=== PATIENT | female | born 1955 | race Caucasian/White ===

== ENCOUNTER 2016-12-12 09:22 | Outpatient (CLI) | payer OTHER | END 2016-12-12 09:23 | disposition home or self-care (01) | DX: Z00.00 Encounter for general adult medical examination without abnormal findings (principal); Z13.220 Encounter for screening for lipoid disorders ==

== ENCOUNTER 2016-12-12 10:12 | Outpatient (CLI) | payer OTHER | END 2016-12-12 10:13 | disposition home or self-care (01) | DX: Z12.31 Encounter for screening mammogram for malignant neoplasm of breast (principal) ==

== ENCOUNTER 2018-04-06 11:23 | Outpatient (CLI) | payer OTHER ==
--- NOTE | 2018-04-07 11:39 | Mammography Report ---
Procedure Date: 04/06/2018 Accession Number: [id number] / [id number] Procedure: MGN - Screening Mammo Dig Bilat CPT Code: FULL RESULT: EXAM: Screening Mammo Dig Bilat DATE: 04/06/2018 11:43 AM CLINICAL HISTORY: 62-year-old for screening TECHNIQUE: Bilateral CC and MLO views were obtained. COMPARISON: 12/12/2016, 10/22/2015, 09/07/2014, 06/09/2013, 12/17/2011, 09/23/2010 FINDINGS: The breasts demonstrate diffuse fatty replacement bilaterally. No suspicious masses, clustered microcalcifications, or regions of architectural distortion are identified. IMPRESSION: Negative examination RECOMMENDATION: Routine annual screening unless otherwise clinically indicated. BIRADS CATEGORY 1: Negative STANDARD QUALIFYING STATEMENTS: 1. This examination was reviewed with the aid of Computer-Aided Detection (CAD). 2. A negative or benign imaging report should not delay biopsy if clinically suspicious findings are present. Consider surgical consultation if warrented. More than 5% of cancers are not identified by imaging. 3. Dense breasts may obscure an underlying neoplasm.
== END 2018-04-06 11:24 | disposition home or self-care (01) ==
LOC: DI.N 11:23
PROVIDERS: ATTEND Family Medicine
DX: Z12.31 Encounter for screening mammogram for malignant neoplasm of breast (principal)
CPT/HCPCS: 77067

== ENCOUNTER 2018-12-08 08:00 | Outpatient (CLI) | payer OTHER ==
[2018-12-08 12:30] LABS: BASOPHILS % (AUTO) 0.7 %; EOSINOPHILS # (AUTO) 0.1 10^3/uL (0.0-0.7); EOSINOPHILS % (AUTO) 2.5 %; LYMPHOCYTES % (AUTO) 37.6 %; MEAN CORPUSCULAR HEMOGLOBIN 31.7 pg (27.0-31.0); MEAN CORPUSCULAR HGB CONC 33.9 g/dL (32.0-36.0); MEAN CORPUSCULAR VOLUME 93.3 fL (81.0-99.0); MEAN PLATELET VOLUME 9.3 fL (7.9-10.8); MONOCYTES # (AUTO) 0.5 10^3/uL (0.0-1.0); NEUTROPHILS # (AUTO) 2.7 10^3/uL (1.5-6.6); NEUTROPHILS % (AUTO) 50.2 %; PLT - PLATELET COUNT 239 10^3/uL (130-450); RED BLOOD COUNT 4.43 10^6/uL (4.20-5.40); RED CELL DISTRIBUTION WIDTH 13.7 % (12.0-15.0); WHITE BLOOD COUNT 5.3 x10^3/uL (4.8-10.8)
[2018-12-08 13:08] LABS: ALBUMIN 3.9 g/dL (3.2-5.5); ALBUMIN/GLOBULIN RATIO 1.2 (1.0-2.2); ALKALINE PHOSPHATASE 51 IU/L (42-121); ALT ALANINE AMINOTRANSFERASE 17 IU/L (10-60); AST ASPARTATE AMINOTRANSFERASE 19 IU/L (10-42); BILIRUBIN,TOTAL 0.8 mg/dL (0.2-1.0); BUN - BLOOD UREA NITROGEN 20 mg/dL (6-20); CALCIUM 8.9 mg/dL (8.5-10.3); CARBON DIOXIDE - CO2 24 mmol/L (21-32); CHLORIDE 105 mmol/L (101-111); CHOL/HDL RATIO 2.5 (<4.4); CHOLESTEROL 201 mg/dL; CREATININE 0.5 mg/dL (0.4-1.0); GFR - MDRD 124 (>89); GLUCOSE 93 mg/dL (70-100); HDL CHOLESTEROL 79 mg/dL; LDL CHOLESTEROL,CALCULATED 107 mg/dL; LDL/HDL RATIO 1.4 (<4.4); SODIUM 138 mmol/L (135-145); TOTAL PROTEIN 7.2 g/dL (6.7-8.2); VLDL CHOLESTEROL 15 mg/dL
== END 2018-12-08 23:59 | disposition home or self-care (01) ==
LOC: LAB.WCP 08:00
PROVIDERS: ATTEND Physician Assistant Medical
DX: Z00.00 Encounter for general adult medical examination without abnormal findings (principal); R13.10 Dysphagia, unspecified
CPT/HCPCS: 36415; 80053; 80061; 83721; 84443; 85025

== ENCOUNTER 2019-09-07 07:00 | Day surgery (SDC) | payer MEDICARE, OTHER ==
[2019-09-07] MEDS ORDERED: ONDANSETRON 4 MG/2 ML VIAL IVP ONE (07:01)
[2019-09-07] MEDS ORDERED: LACTATED RINGERS 1,000 ML IV ONE (07:07)
[2019-09-07] MEDS ORDERED: fentaNYL 250 MCG/5 ML VIAL IVP ONE (08:11)
[2019-09-07] MEDS ORDERED: MIDAZOLAM 2 MG/2 ML VIAL IVP ONE (08:11)
[2019-09-07 09:03] VITALS: BP 95/65
== END 2019-09-07 07:01 | disposition home or self-care (01) ==
LOC: SDS 07:00
PROVIDERS: ATTEND Surgery
PROC: 0DJD8ZZ Inspection of Lower Intestinal Tract, Via Natural or Artificial Opening Endoscopic (ICD-10-PCS; principal; 2019-09-07 08:30)
DX: Z12.11 Encounter for screening for malignant neoplasm of colon (principal); K64.8 Other hemorrhoids; K57.30 Diverticulosis of large intestine without perforation or abscess without bleeding; Z80.7 Family history of other malignant neoplasms of lymphoid, hematopoietic and related tissues; Z87.891 Personal history of nicotine dependence
CPT/HCPCS: G0121; J7120

== ENCOUNTER 2020-02-13 08:00 | Outpatient (CLI) | payer MEDICARE, OTHER ==
[2020-02-13 14:16] LABS: BASOPHILS % (AUTO) 0.5 %; EOSINOPHILS # (AUTO) 0.1 10^3/uL (0.0-0.7); EOSINOPHILS % (AUTO) 1.7 %; HGB - HEMOGLOBIN 13.7 g/dL (12.0-16.0); LYMPHOCYTES # (AUTO) 1.5 10^3/uL (1.5-3.5); LYMPHOCYTES % (AUTO) 36.8 %; MEAN CORPUSCULAR HEMOGLOBIN 29.9 pg (27.0-31.0); MEAN CORPUSCULAR HGB CONC 31.6 g/dL (32.0-36.0); MEAN CORPUSCULAR VOLUME 94.5 fL (81.0-99.0); MEAN PLATELET VOLUME 10.9 fL (7.9-10.8); MONOCYTES # (AUTO) 0.3 10^3/uL (0.0-1.0); NEUTROPHILS # (AUTO) 2.2 10^3/uL (1.5-6.6); PLT - PLATELET COUNT 269 10^3/uL (130-450); RED BLOOD COUNT 4.58 10^6/uL (4.20-5.40); WHITE BLOOD COUNT 4.1 x10^3/uL (4.8-10.8)
[2020-02-13 15:01] LABS: ALBUMIN/GLOBULIN RATIO 1.4 (1.0-2.2); ALKALINE PHOSPHATASE 49 IU/L (42-121); ALT ALANINE AMINOTRANSFERASE 17 IU/L (10-60); AST ASPARTATE AMINOTRANSFERASE 19 IU/L (10-42); BUN - BLOOD UREA NITROGEN 19 mg/dL (6-20); CALCIUM 9.1 mg/dL (8.5-10.3); CARBON DIOXIDE - CO2 24 mmol/L (21-32); CHLORIDE 107 mmol/L (101-111); CHOL/HDL RATIO 2.5 (<4.4); CHOLESTEROL 203 mg/dL; CREATININE 0.7 mg/dL (0.4-1.0); GLUCOSE 93 mg/dL (70-100); HDL CHOLESTEROL 80 mg/dL; LDL CHOLESTEROL,CALCULATED 111 mg/dL; LDL/HDL RATIO 1.4 (<4.4); SODIUM 139 mmol/L (135-145); TOTAL PROTEIN 6.9 g/dL (6.7-8.2); VLDL CHOLESTEROL 12 mg/dL
== END 2020-02-13 23:59 | disposition home or self-care (01) ==
LOC: LAB.WCP 08:00
PROVIDERS: ATTEND Physician Assistant Medical
DX: Z00.00 Encounter for general adult medical examination without abnormal findings (principal); J30.9 Allergic rhinitis, unspecified
CPT/HCPCS: 36415; 80053; 80061; 83721; 85025

== ENCOUNTER 2021-09-04 13:15 | Outpatient (CLI) | payer MEDICARE, OTHER ==
--- NOTE | 2021-09-04 18:56 | XRAY Report ---
PROCEDURE: Lumbar Spine 2 View INDICATIONS: SCIATICA, L TECHNIQUE: 3 views of the lumbar spine were acquired. COMPARISON: None. FINDINGS: Bones: 5 [id number] vertebrae are present. There is a mild dextroscoliosis of the lumbar spine centered at L3-L4. There is mild retrolisthesis at L1-L2 and L2-L3. Mild anterolisthesis is demonstr ated at L4-L5. There is multilevel moderate degenerative disc disease within the mid and lower lumbar spine. There is moderate left predominant facet arthropathy in the lower lumbar spine. No vertebral body compression fractures. No suspicious bony lesions. Soft tissues: Overlying bowel gas pattern is normal. No suspicious soft tissue calcifications. IMPRESSION: 1. Dextroscoliosis of the lumbar spine centered at L3-L4. 2. Mild multilevel spondylolisthesis. 3. Multilevel moderate left predominant degenerative disc disease and left predominant moderate facet arthropathy within the mid and lower lumbar spine. Reviewed by: Narciso Voss MD on 09/04/2021 5:54 PM [place] Approved by: Narciso Voss MD on 09/04/2021 5:54 PM [place] Station ID: [id number]
== END 2021-09-04 13:16 | disposition home or self-care (01) ==
LOC: DI.N 13:15
PROVIDERS: ATTEND Physician Assistant Medical
DX: M51.16 Intervertebral disc disorders with radiculopathy, lumbar region (principal); M43.16 Spondylolisthesis, lumbar region; M41.86 Other forms of scoliosis, lumbar region

== ENCOUNTER 2022-12-03 08:02 | Outpatient (CLI) | payer MEDICARE, OTHER ==
[2022-12-03 12:38] LABS: ALBUMIN 3.9 g/dL (3.2-5.5); ALBUMIN/GLOBULIN RATIO 1.3 (1.0-2.2); ALKALINE PHOSPHATASE 43 IU/L (42-121); ALT ALANINE AMINOTRANSFERASE 20 IU/L (10-60); AST ASPARTATE AMINOTRANSFERASE 19 IU/L (10-42); BILIRUBIN,TOTAL 0.6 mg/dL (0.2-1.0); BUN - BLOOD UREA NITROGEN 21 mg/dL (6-20); CALCIUM 9.4 mg/dL (8.5-10.3); CARBON DIOXIDE - CO2 26 mmol/L (21-32); CHLORIDE 111 mmol/L (101-111); CHOL/HDL RATIO 3.1 (<4.4); CHOLESTEROL 195 mg/dL; CREATININE 0.7 mg/dL (0.4-1.0); GFR - MDRD 83 (>89); GLUCOSE 96 mg/dL (70-100); HDL CHOLESTEROL 62 mg/dL; LDL CHOLESTEROL,CALCULATED 118 mg/dL; LDL/HDL RATIO 1.9 (<4.4); POTASSIUM 4.5 mmol/L (3.5-5.0); SODIUM 142 mmol/L (135-145); TOTAL PROTEIN 6.9 g/dL (6.7-8.2); TRIGLYCERIDES 73 mg/dL; VLDL CHOLESTEROL 15 mg/dL
== END 2022-12-03 08:03 | disposition home or self-care (01) ==
LOC: LAB.N 08:02
PROVIDERS: ATTEND Physician Assistant Medical
DX: E78.5 Hyperlipidemia, unspecified (principal)
CPT/HCPCS: 36415; 80053; 80061; 83721

== ENCOUNTER 2023-01-27 13:49 | Outpatient (CLI) | payer MEDICARE, OTHER ==
--- NOTE | 2023-01-27 14:46 | DEXA Report ---
PROCEDURE: Dexa Spine and/or Hip INDICATIONS: POST MENOPAUSAL TECHNIQUE: Dual energy x-ray absorptiometry (DXA) was performed on a 800APP System. Regions measur ed are the AP Spine, femoral neck, and if needed forearm. COMPARISON: DEXA, 09/07/2014. FINDINGS: Lumbar Spine: Bone Mineral Density 1.394 g/cm/cm,T score 2.6, normal Left Femoral Neck: Bone Mineral Density 0.846 g/cm/cm, T score -1.4, osteopenia. Left Hip: Bone Mineral Density 0.936 g/cm/cm,T score -0 point, normal (T score greater or equal to -1.0: NORMAL) (T score from -1.1 to -2.4: OSTEOPENIA) (T score less than or equal to -2.5 to: OSTEOPOROSIS) Impression: Based on WHO criteria, the patient has osteopenia. Because of difference in equipment and technique, cannot make statistical analysis. Patients with diagnosis of osteoporosis or osteopenia should have regular bone mineral density assess ment. For those eligible for Medicare, routine testing is allowed once every 2 years. Testing frequ ency can be increased for patients who have rapidly progressing disease or for those who are receivin g medical therapy to restore bone mass. Reviewed by: James Hilton MD on 01/27/2023 2:44 PM PDT Approved by: James Hilton MD on 01/27/2023 2:44 PM PDT Station ID: [id number]
== END 2023-01-27 13:50 | disposition home or self-care (01) ==
LOC: DI 13:49
PROVIDERS: ATTEND Physician Assistant Medical
DX: Z78.0 Asymptomatic menopausal state (principal); M85.88 Other specified disorders of bone density and structure, other site

== ENCOUNTER 2023-03-05 16:11 | Outpatient (CLI) | payer MEDICARE, OTHER ==
--- NOTE | 2023-03-05 17:26 | XRAY Report ---
PROCEDURE: Cervical Spine 2 View INDICATIONS: NECK Pain, chronic TECHNIQUE: 3 view(s) of the cervical spine were acquired. COMPARISON: None. FINDINGS: Bones: No fractures or dislocations to the C7 level. Moderate degenerative change in the lower cerv ical spine. The lateral masses of C1 appear intact on the odontoid view. No suspicious bony lesions. Soft tissues: No prevertebral soft tissue swelling. IMPRESSION: Moderate degenerative change in the lower cervical spine. Reviewed by: Mateo Frazier MD on 03/05/2023 5:25 PM PDT Approved by: Mateo Frazier MD on 03/05/2023 5:25 PM PDT Station ID: [id number]
--- NOTE | 2023-03-05 17:32 | XRAY Report ---
PROCEDURE: Shoulder 3 View RT INDICATIONS: NECK PAIN,CHRONIC/SHOULDER JOINT PAIN TECHNIQUE: 3 views of the shoulder were acquired. COMPARISON: None. FINDINGS: Bones: No fractures or dislocations. Mild degenerative changes at the AC joint. No suspicious bony l esions. Visualized ribs appear intact. Soft tissues: No suspicious soft tissue calcifications. IMPRESSION: Mild degenerative changes at the AC joint. If symptoms persist consider MRI for further evaluation. Reviewed by: Mateo Frazier MD on 03/05/2023 5:30 PM PDT Approved by: Mateo Frazier MD on 03/05/2023 5:30 PM PDT Station ID: [id number]
== END 2023-03-05 16:12 | disposition home or self-care (01) ==
LOC: DI 16:11
PROVIDERS: ATTEND Physician Assistant Medical
DX: M47.812 Spondylosis without myelopathy or radiculopathy, cervical region (principal); M19.011 Primary osteoarthritis, right shoulder

== ENCOUNTER 2023-07-09 14:31 | Outpatient (CLI) | payer MEDICARE, OTHER ==
--- NOTE | 2023-07-10 14:30 | Mammography Report ---
BILATERAL DIGITAL SCREENING MAMMOGRAM 3D/2D: 07/09/2023 CLINICAL: Routine screening. Comparison is made to exams dated: 04/06/2018 mammogram, 12/12/2016 mammogram, 10/22/2015 mammogram, mammogram, and 12/07/2012 mammogram - Merged with [facility]. There are scattered areas of fibroglandular density in both breasts (category b / 25%-50% glandular t issue). No significant masses, calcifications, or other findings are seen in either breast. There has been no significant interval change. IMPRESSION: NEGATIVE There is no mammographic evidence of malignancy. A 1 year screening mammogram is recommended. Based on the Tyrer Cuzick model (a risk assessment model) the patients lifetime risk is 7.4% and her 10 year risk is 4.7%. According to the ACR, ACS, and NCCN guidelines, an annual breast MRI exam jose g with mammogram is recommended if the patients lifetime risk is 20% or greater. This exam was interpreted at Station ID: [id number]. NOTE: For mammograms, a report in lay terms will be sent to the patient. Approximately 15% of breast malignancies will not be visualized mammographically. In the management of a palpable breast mass, a negative mammogram must not discourage biopsy of a clinically suspicious lesion. Electronically Signed By: Anaid mcmanus/stacey:07/09/2023 18:36:31 letter sent: No_Letter ACR BI-RADS Category 1: Negative 3341F PARENCHYMAL PATTERN: (A) - The breast(s) demonstrate(s) scattered fibroglandular densities. BI-RADS CATEGORY: (1) - 1 Mammogram [id number] 1 year screening LATERALITY: (B)
== END 2023-07-09 14:32 | disposition home or self-care (01) ==
LOC: DI 14:31
DX: Z12.31 Encounter for screening mammogram for malignant neoplasm of breast (principal); R92.323 Mammographic fibroglandular density, bilateral breasts

== ENCOUNTER 2023-12-14 12:06 | Outpatient (CLI) | payer MEDICARE, OTHER ==
--- NOTE | 2023-12-14 13:33 | XRAY Report ---
PROCEDURE: Shoulder 2+V RT INDICATIONS: R SHOULDER PAIN TECHNIQUE: 3 views of the shoulder were acquired. COMPARISON: 03/05/2023 FINDINGS: Bones: No fractures or dislocations. Mild periventricular joint degeneration. No suspicious bony le sions. Visualized ribs appear intact. Soft tissues: No suspicious soft tissue calcifications. The visualized lungs are within normal limi ts. IMPRESSION: No acute bony abnormality. Mild acromioclavicular joint degeneration. Reviewed by: Coleman Quinteros MD on 12/14/2023 1:31 PM PDT Approved by: Coleman Quinteros MD on 12/14/2023 1:31 PM PDT Station ID: [id number]
--- NOTE | 2023-12-14 16:07 | XRAY Report ---
PROCEDURE: Lumbar Spine 2-3V INDICATIONS: SHOULDER PAIN TECHNIQUE: 2 views of the lumbar spine were acquired. COMPARISON: Lumbar spine radiographs 09/04/2021 FINDINGS: Bones: 5 [id number]-bel-tluxapn vertebrae are present. There is mild posterior convex curvature of the lumb ar spine. Grade 1 retrolisthesis is seen at L1-2 and L2-3. There is grade 1 anterolisthesis at L4-5. Multilevel disc space narrowing and degenerative endplate changes are seen throughout the lumbar spin e. There is multilevel facet hypertrophy. Findings appear similar to minimally progressed when compar ed to the radiographs from 09/04/2021. No vertebral body compression fractures. No suspicious bony le sions. Soft tissues: Overlying bowel gas pattern is normal. No suspicious soft tissue calcifications. Righ t upper quadrant cholecystectomy clips. IMPRESSION: 1.Moderate multilevel spondylosis and degenerative spondylolisthesis. 2.Mild dextroconvex curvature. Reviewed by: Jake Bowman MD on 12/14/2023 4:06 PM PDT Approved by: Jake Bowman MD on 12/14/2023 4:06 PM PDT Station ID: [id number]
== END 2023-12-14 12:07 | disposition home or self-care (01) ==
LOC: DI 12:06
PROVIDERS: ATTEND Physician Assistant Medical
DX: M47.816 Spondylosis without myelopathy or radiculopathy, lumbar region (principal); M43.16 Spondylolisthesis, lumbar region; M19.011 Primary osteoarthritis, right shoulder

== ENCOUNTER 2024-02-03 10:22 | Outpatient (CLI) | payer MEDICARE, OTHER ==
--- NOTE | 2024-02-03 12:55 | MRI Report ---
PROCEDURE: Lumbar Spine WO INDICATIONS: LOW BACK PAIN TECHNIQUE: Noncontrast sagittal T1 spin echo and T2 fast echo, sagittal STIR, axial T1 and T2 fast spin echo thr ough the lumbar spine. In cases with scoliosis, additional coronal T2 fast spin echo may be performe d. COMPARISON: Radiograph 12/14/2023, 09/04/2021 FINDINGS: Image quality: Excellent. Alignment and Curvature: Grade 1 anterolisthesis of L4 on L5. Grade 1 retrolisthesis of L2 on L3. Bone Marrow: Type II Modic changes at the anterior endplates of T11 and T12. No acute vertebral body compression fractures. Spinal Cord: Conus medullaris terminates at the L1 level. Visualized cord demonstrates normal signa l and size. Paraspinous Soft Tissues: No paravertebral masses. T12-L1: Normal in appearance. L1-L2: Disc desiccation, broad-based disc bulge, facet hypertrophy and ligamentum flavum hypertrop hy. L2-L3: Broad-based disc bulge with superimposed left foraminal and subarticular protrusion. Mild f acet hypertrophy and facet arthrosis. Moderate to severe spinal canal narrowing. Severe bilateral betzaida ral foraminal narrowing. L3-L4: Broad-based disc bulge, severe facet hypertrophy, severe spinal canal narrowing, severe left and moderate right neural foraminal narrowing. L4-L5: Broad-based disc bulge, severe facet hypertrophy and arthrosis. Severe spinal canal narrowin g. Severe left and moderate right neural foraminal narrowing. L5-S1: Asymmetric right extraforaminal disc bulge, mild facet hypertrophy, mild to moderate bilater al neural foraminal narrowing. IMPRESSION: Multilevel degenerative disc disease and facet arthrosis. Of note: Severe spinal canal narrowing at L3-4 and L4-5, and moderate to severe spinal canal narrowing at L2-3 . Up to severe neural foraminal narrowing at L2-3, L3-4, L4-5. Reviewed by: Laci Fraga MD on 02/03/2024 12:54 PM PDT Approved by: Laci Fraga MD on 02/03/2024 12:54 PM PDT Station ID: [id number]
== END 2024-02-03 10:23 | disposition home or self-care (01) ==
LOC: DI 10:22
PROVIDERS: ATTEND Physician Assistant Medical
DX: M47.816 Spondylosis without myelopathy or radiculopathy, lumbar region (principal); M51.36 Other intervertebral disc degeneration, lumbar region; M48.061 Spinal stenosis, lumbar region without neurogenic claudication